=== PATIENT | female | born 1970 | race Caucasian/White ===

== ENCOUNTER 2019-04-30 13:42 | Emergency (ER) | payer OTHER, SELFPAY ==
[2019-04-30 13:43] VITALS: BP 152/87; PULSE 78; RESP 16; TEMP 36.8; O2SAT 95; BMI 23.3
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
[2019-04-30 16:26] VITALS: RESP 16
[2019-04-30] MEDS: Ketorolac 60 MG/2 ML Vial IM (16:54)
[2019-04-30] MEDS: Orphenadrine 60 MG/2 ML Ampul IM (16:56)
[2019-04-30 17:02] VITALS: BP 146/86; PULSE 67; RESP 16; O2SAT 95
== END 2019-04-30 17:21 | disposition home or self-care (01) ==
PROVIDERS: Emergency Provider Emergency Medicine; Family Provider Family Medicine; PCP Family Medicine
DX: S09.90XA Unspecified injury of head, initial encounter (principal); S16.1XXA Strain of muscle, fascia and tendon at neck level, initial encounter; S39.012A Strain of muscle, fascia and tendon of lower back, initial encounter; V43.62XA Car passenger injured in collision with other type car in traffic accident, initial encounter; Y93.9 Activity, unspecified; Y92.410 Unspecified street and highway as the place of occurrence of the external cause; Y99.9 Unspecified external cause status; E03.9 Hypothyroidism, unspecified
CPT/HCPCS: 70450; 72100; 72125; 96372; 99284; A4216

== ENCOUNTER → 2022-12-22 | Outpatient (CLI) | payer OTHER, SELFPAY ==
[2022-12-22 18:30] LABS: Erythrocyte Sedimentation Rate 7 mm/hr (0-30)
[2022-12-22 18:32] LABS: Absolute Lymphocyte Count 1.87 X10^3/uL (0.83-4.51); Absolute Neutrophil Count 5.4 X10^3/uL (2.0-7.7); Basophil# 0.05 X10^3/uL; Basophil% 0.6 % (0-1); Eosinophil# 0.19 X10^3/uL; Eosinophils% 2.4 % (0-5); Hematocrit 45.7 % (37-47); Hemoglobin 14.5 g/dL (12.0-15.0); Lymphocyte # 1.87 X10^3/ul (0.83-4.51); Lymphocyte % 23.3 % (19-41); Mean Corp Hgb Conc 31.7 g/dL (32-36); Mean Corpuscular Hgb 29.3 pg (27.0-32.0); Mean Corpuscular Volume 92.3 fL (81-99); Mean Platelet Vol. 10.5 fl (6.2-12.0); Monocyte# 0.52 X10^3/uL; Monocyte% 6.5 % (0-10); NRBC Flagged by Analyzer 0 % (0-5); Neutrophil # 5.37 X10^3/uL (2.7-7.7); Neutrophil % 66.8 % (47-70); Platelet Count 276 K/mm3 (150-450); RBC Distribution Width CV 12.8 % (11.6-14.6); RBC Distribution Width SD 43.2 fl (35.1-43.9); Red Blood Count 4.95 M/mm3 (4.2-5.4)
[2022-12-22 18:47] LABS: ALB/GLOB Ratio 1.1 RATIO (0.9-2.4); AST(SGOT) 64 U/L (15-37); Alanine Aminotransfer ALT/SGPT 61 U/L (13-56); Albumin, Serum 3.7 g/dL (3.2-5.0); Alkaline Phosphatase 109 U/L (45-117); Anion Gap 4 (5-15); BUN 13 mg/dL (7-18); CRP 3.29 mg/L (0.0-3.0); Calcium,Total 8.9 mg/dL (8.5-10.1); Chloride 110 mmol/L (98-107); Creatinine, Serum 0.93 mg/dL (0.55-1.02); EST Glomerular Filtration Rate 67 mL/min (>60); Est Glom Filt Rate - Afr Amer 81 mL/min (>60); Globulin 3.4 g/dL (2.2-4.2); Glucose 133 mg/dL (74-106); Potassium 3.8 mmol/L (3.5-5.1); Protein, Total 7.1 g/dL (6.4-8.2); Rheumatoid Factor < 10.0 IU/mL (<15); Sodium Level 138 mmol/L (136-145); Uric Acid 6.7 mg/dL (2.6-6.0)
[2022-12-24 13:08] LABS: CCP IgG Antibodies 1 units (0-19)
[2022-12-24 14:09] LABS: ANTINUCLEAR ANTIBODIES DIRECT Negative (Negative)
== END | disposition home or self-care (01) ==
PROVIDERS: PCP Physician Assistant; Referring Provider Podiatrist; Visit Provider Podiatrist
DX: M19.90 Unspecified osteoarthritis, unspecified site (principal); M72.2 Plantar fascial fibromatosis
CPT/HCPCS: 36415; 80053; 84550; 85025; 85652; 86038; 86140; 86200; 86431

== ENCOUNTER → 2023-01-25 | Outpatient (CLI) | payer OTHER, SELFPAY ==
[2023-01-25 12:46] LABS: Erythrocyte Sedimentation Rate 11 mm/hr (0-30)
[2023-01-25 12:49] LABS: Absolute Lymphocyte Count 1.39 X10^3/uL (0.83-4.51); Absolute Neutrophil Count 3.7 X10^3/uL (2.0-7.7); Basophil# 0.04 X10^3/uL; Basophil% 0.7 % (0-1); Eosinophil# 0.12 X10^3/uL; Eosinophils% 2.1 % (0-5); Hematocrit 44.9 % (37-47); Hemoglobin 14.5 g/dL (12.0-15.0); Lymphocyte # 1.39 X10^3/ul (0.83-4.51); Lymphocyte % 24.6 % (19-41); Mean Corp Hgb Conc 32.3 g/dL (32-36); Mean Corpuscular Hgb 28.9 pg (27.0-32.0); Mean Corpuscular Volume 89.6 fL (81-99); Mean Platelet Vol. 11.3 fl (6.2-12.0); Monocyte# 0.37 X10^3/uL; Monocyte% 6.5 % (0-10); NRBC Flagged by Analyzer 0 % (0-5); Neutrophil % 65.6 % (47-70); Platelet Count 249 K/mm3 (150-450); RBC Distribution Width CV 12.8 % (11.6-14.6); RBC Distribution Width SD 41.6 fl (35.1-43.9); Red Blood Count 5.01 M/mm3 (4.2-5.4); White Blood Count 5.7 K/mm3 (4.4-11.0)
[2023-01-25 13:11] LABS: AST(SGOT) 51 U/L (15-37); Alanine Aminotransfer ALT/SGPT 55 U/L (13-56); Albumin, Serum 3.8 g/dL (3.2-5.0); Alkaline Phosphatase 108 U/L (45-117); Anion Gap 6 (5-15); BUN 12 mg/dL (7-18); BUN/Creat Ratio 14.7 RATIO (10-20); CRP < 2.90 mg/L (0.0-3.0); Calcium,Total 9.1 mg/dL (8.5-10.1); Chloride 109 mmol/L (98-107); Creatinine, Serum 0.82 mg/dL (0.55-1.02); EST Glomerular Filtration Rate 78 mL/min (>60); Est Glom Filt Rate - Afr Amer 94 mL/min (>60); Globulin 3.7 g/dL (2.2-4.2); Glucose 144 mg/dL (74-106); Protein, Total 7.5 g/dL (6.4-8.2); Rheumatoid Factor < 10.0 IU/mL (<15); Sodium Level 141 mmol/L (136-145)
[2023-01-25 13:26] LABS: Hepatitis B Surface Antibody Non-Reactive; Hepatitis B Surface Antigen Non-Reactive (Nonreactive); Hepatitis C Antibody Non-Reactive (Nonreactive)
[2023-01-27 16:09] LABS: CCP IgG Antibodies 6 units (0-19); QNTFERON TB Mitogen Value > 10.00 IU/mL (.); QNTFERON TB Nil Value 0.02 IU/mL (.); QNTFERON TB1+ Ag Value 0.03 IU/mL (.); QNTFERON TB2+ Ag Value 0.02 IU/mL (.); QNTIFERON TB Positive Criteria Negative (Negative)
== END | disposition home or self-care (01) ==
LOC: MTLAB 09:57
PROVIDERS: PCP Physician Assistant; Referring Provider Internal Medicine Rheumatology; Visit Provider Internal Medicine Rheumatology
DX: M06.4 Inflammatory polyarthropathy (principal); M79.7 Fibromyalgia; M51.37 Other intervertebral disc degeneration, lumbosacral region; M50.30 Other cervical disc degeneration, unspecified cervical region; I10 Essential (primary) hypertension; E03.9 Hypothyroidism, unspecified
CPT/HCPCS: 36415; 80053; 85025; 85652; 86140; 86200; 86431; 86480; 86706; 86803; 87340

== ENCOUNTER → 2023-10-20 | Outpatient (CLI) | payer OTHER, SELFPAY ==
[2023-10-20 12:30] LABS: Absolute Lymphocyte Count 1.65 X10^3/uL (0.83-4.51); Absolute Neutrophil Count 4.2 X10^3/uL (2.0-7.7); Basophil# 0.07 X10^3/uL; Eosinophil# 0.24 X10^3/uL; Eosinophils% 3.6 % (0-5); Hematocrit 43.2 % (37-47); Hemoglobin 13.5 g/dL (12.0-15.0); Lymphocyte # 1.65 X10^3/ul (0.83-4.51); Lymphocyte % 24.7 % (19-41); Mean Corp Hgb Conc 31.3 g/dL (32-36); Mean Corpuscular Hgb 28.4 pg (27.0-32.0); Mean Corpuscular Volume 90.8 fL (81-99); Monocyte# 0.48 X10^3/uL; Monocyte% 7.2 % (0-10); NRBC Flagged by Analyzer 0 % (0-5); Neutrophil # 4.22 X10^3/uL (2.7-7.7); Neutrophil % 63.2 % (47-70); Platelet Count 269 K/mm3 (150-450); RBC Distribution Width CV 13.2 % (11.6-14.6); RBC Distribution Width SD 43.2 fl (35.1-43.9); Red Blood Count 4.76 M/mm3 (4.2-5.4); White Blood Count 6.7 K/mm3 (4.4-11.0)
[2023-10-20 13:30] LABS: AST(SGOT) 33 U/L (15-37); Alanine Aminotransfer ALT/SGPT 36 U/L (13-56); Albumin, Serum 3.6 g/dL (3.2-5.0); Alkaline Phosphatase 103 U/L (45-117); Anion Gap 6 (5-15); BUN 13 mg/dL (7-18); BUN/Creat Ratio 14.8 RATIO (10-20); Calcium,Total 9.1 mg/dL (8.5-10.1); Chloride 110 mmol/L (98-107); Cholesterol 146 mg/dL (200); Creatinine, Serum 0.88 mg/dL (0.55-1.02); EST Glomerular Filtration Rate 72 mL/min (>60); Est Glom Filt Rate - Afr Amer 87 mL/min (>60); Globulin 3.7 g/dL (2.2-4.2); Glucose 147 mg/dL (74-106); High Density Lipoprotein 51 mg/dL; Potassium 4.3 mmol/L (3.5-5.1); Protein, Total 7.3 g/dL (6.4-8.2); Sodium Level 142 mmol/L (136-145); T4 Free Direct 0.99 ng/dL (0.76-1.46); Thyroid Stim Hormone (TSH) 0.47 uIU/mL (0.358-3.74); Triglycerides 254 mg/dL; Very Low Density Lipoprotein 51 mg/dL (5-40)
[2023-10-20 13:35] LABS: Microalbumin,Random Urine 10.1 mg/L (NO RANGE EST.); Microalbumin:Creatinine Ratio 7.3 mg/g CRE (<30 mg/g CRE)
== END | disposition home or self-care (01) ==
LOC: BFHLAB 09:16
PROVIDERS: PCP Family Medicine; Visit Provider Family Medicine
DX: E03.9 Hypothyroidism, unspecified (principal); E11.9 Type 2 diabetes mellitus without complications; I10 Essential (primary) hypertension
CPT/HCPCS: 36415; 80053; 80061; 82043; 82570; 84439; 84443; 85025

== ENCOUNTER → 2023-12-20 | Outpatient (CLI) | payer OTHER, SELFPAY ==
--- NOTE | 2023-12-20 10:52 | NEURO ---
NCS and/or EMG Patient Report Ordering Doctor: Rebel Balbuena DATE OF SERVICE: 12/20/23 Clinical Summary: 53 year old female patient with symptoms of pain in the distal lower extremities. She has a history of L4-L5 back surgery. Nerve Conduction Studies Summary: The right peroneal-EDB CMAP amplitude was reduced diffusely. The right peroneal motor conduction velocity was mildly reduced distally. Needle Examination Summary: Needle examination of select muscles of the bilateral lower extremities demonstrated a higher proportion of motor unit action potentials with increased amplitude and increased duration in the right tibialis anterior and peroneus longus muscles. Impression: The electrodiagnostic findings are suggestive, but not definitively diagnostic, of a chronic, mild, right L5 radiculopathy. There is no electrodiagnostic evidence of a left lumbosacral radiculopathy. There is no electrodiagnostic evidence of a large-fiber peripheral polyneuropathy. Multi Select Codes Neurology Neurology Interp Codes: 43390-29 Musc test done w/n test comp (interp) (2) and 39278-55 Nrv cndj test 9-10 studies (interp)
== END | disposition home or self-care (01) ==
PROVIDERS: PCP Family Medicine; Referring Provider Podiatrist; Visit Provider Podiatrist
DX: G60.8 Other hereditary and idiopathic neuropathies (principal)
CPT/HCPCS: 95886; 95911

== ENCOUNTER → 2024-02-02 | Outpatient (CLI) | payer OTHER, SELFPAY ==
[2024-02-07 14:10] LABS: Age Gdln ACOG Testing 30-65 (.); HPV APTIMA, High Risk Negative (Negative)
[2024-02-07 17:12] LABS: HPV Reflexed? YES, CHARGE PATIENT
== END | disposition home or self-care (01) ==
LOC: LABSPEC 13:46
PROVIDERS: PCP Family Medicine; Referring Provider Family Medicine; Visit Provider Family Medicine
DX: Z12.4 Encounter for screening for malignant neoplasm of cervix (principal)
CPT/HCPCS: 87624; 88175; G0145

== ENCOUNTER 2024-03-21 10:00 | Outpatient (RCR) | payer OTHER, SELFPAY ==
--- NOTE | 2024-01-10 07:18 | HP.PTEVAL_ITS ---
Patient's Visit Information Visit Information Visit Information: OTONIEL NIX is a 53 year old F referred to Physical Therapy by Dr. Rebel Balbuena DPM with a diagnosis of Bilateral achilles tendonitis, peroneus brevis tear on L, ATFL tear on R. Date of Evaluation: 12/30/23 Physical Therapist: Jimenez Tyson DPT Visit Plan Frequency: 2x /Week Duration: 6 Weeks Plan: Start with slowly, but progressively loading of tissues to aid with remodeling. Start with banded progressing to CKC. Add in DN/graston to assist with remodeling. Progress to CKC and neuromuscular re eduction to reduce end range stress to lateral tissues. Subjective Subjective: Pt. 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 Pt. reports having N/T in B feet, and burning in B anterior tibial region. Pt. reports increased issues with sleeping. She props her feet up, but they become very numb at night. Pt. has had ankle and feet problems for reported years. She wears B [employer] boots which help. She is also doing EPAT at podiatry. PMH: lumbar surgery (non fusion), and lumbar nerve ablasion. Pt. reports she was trying to walk more, but really aggravated her ankles and feet. She has had recent MRIs of both feet/ankles: R: ATFL tear chronic, Achilles tendinosis, plantar fasciitis, lateral posterior talar dome injury L: peroneus brevis tendon split, insertional medial plantar fascial tear. Pt. is hopeful to get back to walking without increase in B ankle pain. Pt. has increased pain with standing, walking, most CKC activities. Decreased pain: sitting, but not much. Pain R ankle: Pain Intensity (Out of 10): 8 Pain Intensity Range: 4 and 10 Comment: lateral ankle into foot L ankle: Pain Intensity (Out of 10): 8 Pain Intensity Range: 4 and 10 Comment: lateral aspect Objective Objective: POSTURE: Pt. has fairly normal stance. No major abnormalities. Pt. has slight sway back posture. Pt. has decreased B arch heights. PALPATION: Pt. is pretty tender to palpation throughout lateral foot and along peroneals. NEURO: Pt. has decreased sensation in B feet to light touch, otherwise normal. ROM: R ankle: DF 8deg, PF 39deg, INV 8deg, EVR 8deg. L ankle: DF 9deg, PF 41deg, INV 8 deg, EVR 8 deg. Pt. has normal B knee ROM. Pt has tightness noted in B hamstrings. MMT: R ankle: DF 4/5 ID 4+/5, INV 4/5, EVR 4/5 increase with all testing. L ankle: DF 4/5 ID 4+/5, INV 4/5, EVR 4/5 increase with all testing. GAIT: Pt. ambulates without AD, but has very flat foot type gait, limited forefoot rocker moment noted. STAIRS: equally very stiff with her ankle and foot mobility. Balance/Special Test Scores Lower Extremity Functional Score: 46 Goals Goal 1:: LTG: Pt. to be I with HEP. Goal Time Frame: 4-6 Weeks Goal 2:: STG: Pt. to ambulate with in grocery store and community with 0-4/10 pain in B ankles. Goal Time Frame: 2-4 Weeks Goal 3:: LTG: Pt. to ambulate unlimited distances with normal gait pattern with 0-2/10 pain in B ankles. Goal Time Frame: 4-6 Weeks Goal 4:: LTG: Pt. to have increased B ankle strength to 5/5 throughout. Goal Time Frame: 4-6 Weeks Goal 5:: LTG: Pt. to tolerate all ADLs and IADLs with 0-2/10 pain in B ankles. Goal Time Frame: 4-6 Weeks Rehabilitation Potential Physical Therapy Diagnosis: Pt. has signs and symptoms consistent with Bilateral achilles tendonitis, peroneus brevis tear on L, ATFL tear on R. Pt. has higher levels of pain in B feet and lateral ankles. Pt. would benefit from PT. to work on slowly remodeling tissue and increasing stability with all CKC and functional mobility. Rehabilitation Potential: Good Anticipated Interventions Patient/Client Instruction: Educate patient on: Condition, Plan of Care, Risk Factors and Benefits of Fitness Program For the Purpose of:: To improve decision making, To facilitate caregiver knowledge, To improve self management, To prevent re-injury and To improve ability to perform tasks related to life management Therapeutic Exercise to Include: Strength training, Power training, Balance training, Flexibilty training, Gait and locomotor training, Neuromotor development, Passive ROM and Active ROM For the Purpose of:: To decrease pain, To increase ROM, To improve nutrient delivery to tissue, To increase oxygenation perfusion, To improve muscle performance and motor function, To improve ability to perform ADL's, To increase tolerance to activity/condition/position, To decrease soft tissue restriction and To increase flexibility/ROM Manual Therapy Techniques to Include: Mobilization, Functional dry needling and Soft tissue mobilization For the Purpose of:: To decrease pain, To increase ROM and To improve nutrient delivery to tissue Text: Thank you for the opportunity to evaluate your patient. For Medicare and Medicare HMO plans, please review the plan of care and approve it. It will need to be FAXED BACK to us at [phone] for Medicare purposes. For Medicare only, by signing this I certify the plan of care. Please let me know if there are questions or concerns regarding this plan of care. Physician Signature: Date:
== END 2024-03-21 19:00 | disposition home or self-care (01) ==
LOC: PT 10:00
PROVIDERS: PCP Family Medicine; Referring Provider Podiatrist; Visit Provider Podiatrist
DX: M76.61 Achilles tendinitis, right leg (principal); M76.62 Achilles tendinitis, left leg
CPT/HCPCS: 97110; 97140; 97161

== ENCOUNTER → 2024-11-02 | Outpatient (CLI) | payer OTHER, SELFPAY ==
--- NOTE | 2024-11-02 15:41 | US_ITS ---
PROCEDURE: TRANSVAGINAL NON- REASON FOR EXAM: Postmenopausal bleeding. TECHNIQUE: Transabdominal and transvaginal pelvic ultrasound COMPARISON: None. FINDINGS: Measurements: Uterus: 8.4 cm x 4.1 cm x 3.8 cm with a volume of 67.2 mL Endometrial Thickness: 3.8 mm Right Ovary: Not visualized. Left Ovary: Not visualized. TRANSABDOMINAL: Uterus: Heterogeneous appearance of the myometrium. No focal fibroid is seen. Findings suggestive of fibroid change. Endometrium: Mildly thickened endometrium. Right ovary: Not visualized. Left ovary: Not visualized. No large pelvic mass identified. Transvaginal sonography was performed as transabdominal imaging did not explain the patient's presenting symptoms. TRANSVAGINAL: Uterus: Anteverted. Heterogeneous echotexture of the myometrium suggestive of fibroid change although no focal fibroid is seen. Endometrium: Mild endometrial thickening. Right ovary: Not visualized. Left ovary: Not visualized. Other adnexal findings: None. Cul-de-sac: No free intraperitoneal fluid identified. No tenderness. US/Transvaginal Non- IMPRESSION: Mild thickening of the endometrium. Fibroid change although no focal fibroid is seen. Reading Location: [facility]
== END | disposition home or self-care (01) ==
LOC: US 15:39
PROVIDERS: PCP Family Medicine; Referring Provider Obstetrics & Gynecology; Visit Provider Obstetrics & Gynecology
DX: N95.0 Postmenopausal bleeding (principal)
CPT/HCPCS: 76830

== ENCOUNTER 2025-04-17 10:00 | Outpatient (RCR) | payer OTHER, SELFPAY ==
--- NOTE | 2025-03-06 10:58 | HP.PTEVAL_ITS ---
Patient's Visit Information Visit Information Visit Information: OTONIEL NIX is a 54 year old F referred to Physical Therapy by CONOR Velásquez with a diagnosis of Cervical and L Radic. Date of Evaluation: 03/06/25 Physical Therapist: ROBSON Castro Visit Plan Frequency: 2x /Week Duration: 2 Months Plan: 2X/ week for 4 weeks for consult for DN per order for C-spine and L-spine radic, postural and Neutral spine core stability, postural exercises, trail of neck retraction and extension with HEP HEP: light chin tucks to see effectivness as long as does not keep lasting pain in the neck or L shoulder Subjective Subjective: Pt has cervical issues at lower part of the brain and goes out to B shoulder and can't lift her L arm and feels on the L like there are spiders down the arm and N&T. This started in October. They have done MRI and x-rays and seen ortho Dr. Her MRI showed C4/C5 and C6/C7 disc bulges and L4/L5 and L5/S1. There is no pain management scheduled at this time but is an option. She has had PT for neck and back before and reports that she tries to do PT exercises. She reports that she has trouble sleeping with pain down the L arm and in the neck. She is trying to sleep in a bed. Pt feels that dry needling helped with her feet and wants to try it on her neck and back. Pain Neck pain: Pain Intensity (Out of 10): 7 L arm pain: Pain Intensity (Out of 10): 7 Back Pain: Pain Intensity (Out of 10): 6 Objective Objective: Gait: walks with shorter stride and decrease heel to toe gait pattern Posture: Sits with rounded shoulders and increase PPT C-spine AROM: flexion 75%, Ext 10%, Rot R 75% and Rot L 50% with increase pain, SB B 10% C-spine retraction has pain neck down the L side while doing it and then less pain when stop it. UE AROM: flexion B approx 120 with increase pain on the L, IR to L1 B with increase pain on the L, ER WFL Trunk AROM: flexion 100%, EXt 75%, Sb B 75%, Rot B 50% UE MMT: R shoulder flexion 11.5 and L 9.7 R shoulder ER 8.5 and L 9.7 R shoulder IR 11.1 and L 11.6 LE MMT: R hip flex 12.1 and L 12.6 R knee ext 16.9 and L 23 R knee flex 10.1 and L 12.1 Supine hip ABD R 12.9 and L 16 Bridge: full ROM bridge -SLR B Palpation: pt has tightness along levator, upper and mid trap region. Balance/Special Test Scores Oswestry Neck Score: 23 Goals Goal 1:: I HEP Goal Time Frame: 6-8 Weeks Goal 2:: Increase C-spine AROM (at the time of the eval: C-spine AROM: flexion 75%, Ext 10%, Rot R 75% and Rot L 50% with increase pain, SB B 10%) Goal Time Frame: 6-8 Weeks Goal 3:: Decrease neck and L shoulder pain by 50% Goal Time Frame: 6-8 Weeks Goal 4:: Be able to complete full L spine core stability program to complete at home Goal Time Frame: 6-8 Weeks Rehabilitation Potential Rehabilitation Potential: Good Anticipated Interventions Patient/Client Instruction: Educate patient on: Condition and Plan of Care For the Purpose of:: To decrease pain, To decrease swelling/inflammation, To increase ROM, To improve nutrient delivery to tissue, To improve muscle performance and motor function, To improve ability to perform ADL's, To increase tolerance to activity/condition/position, To improve performance and independence with ADL's, To decrease level of supervision to perform tasks, To improve ability of physical actions for home/community/work/leisure, To improve health of tissue, To decrease soft tissue restriction and To increase flexibility/ROM Therapeutic Exercise to Include: Strength training, Body mechanics, Postural training, Flexibilty training, Neuromotor development, Passive ROM, Active ROM, Peyton Exercises and Scapular Strength/Stabilization For the Purpose of:: To decrease pain, To increase ROM, To improve nutrient delivery to tissue, To improve muscle performance and motor function, To improve ability to perform ADL's, To increase tolerance to activity/condition/position, To improve performance and independence with ADL's, To decrease level of supervision to perform tasks, To improve ability of physical actions for home/community/work/leisure, To improve health of tissue, To decrease soft tissue restriction and To increase flexibility/ROM Manual Therapy Techniques to Include: Passive ROM, Soft tissue mobilization and Other Comment: DN For the Purpose of:: To decrease pain, To increase ROM, To improve nutrient delivery to tissue, To improve muscle performance and motor function, To improve ability to perform ADL's, To increase tolerance to activity/condition/position, To improve performance and independence with ADL's, To decrease level of supervision to perform tasks, To improve ability of physical actions for home/community/work/leisure, To improve health of tissue, To decrease soft tissue restriction and To increase flexibility/ROM Ultrasound (thermal/non thermal): Yes For the Purpose of:: To decrease pain, To decrease swelling/inflammation, To increase ROM and To improve nutrient delivery to tissue Text: Thank you for the opportunity to evaluate your patient. For Medicare and Medicare HMO plans, please review the plan of care and approve it. It will need to be FAXED BACK to us at [phone] for Medicare purposes. For Medicare only, by signing this I certify the plan of care. Please let me know if there are questions or concerns regarding this plan of care. Physician Si gnature: Date:
--- NOTE | 2025-07-03 13:15 | HP.PT.NRP ---
Patient Information Patient Information: OTONIEL NIX was seen in my office for initial evaluation on 03/06/25. The following Plan of Care was established for this patient: POC Established Initial Frequency: 2x /Week Initial Duration: 2 Months Anticipated Interventions Patient/Client Instruction: Educate patient on: Condition and Plan of Care For the Purpose of:: To decrease pain, To decrease swelling/inflammation, To increase ROM, To improve nutrient delivery to tissue, To improve muscle performance and motor function, To improve ability to perform ADL's, To increase tolerance to activity/condition/position, To improve performance and independence with ADL's, To decrease level of supervision to perform tasks, To improve ability of physical actions for home/community/work/leisure, To improve health of tissue, To decrease soft tissue restriction and To increase flexibility/ROM Therapeutic Exercise to Include: Strength training, Body mechanics, Postural training, Flexibilty training, Neuromotor development, Passive ROM, Active ROM, Peyton Exercises and Scapular Strength/Stabilization For the Purpose of:: To decrease pain, To increase ROM, To improve nutrient delivery to tissue, To improve muscle performance and motor function, To improve ability to perform ADL's, To increase tolerance to activity/condition/position, To improve performance and independence with ADL's, To decrease level of supervision to perform tasks, To improve ability of physical actions for home/community/work/leisure, To improve health of tissue, To decrease soft tissue restriction and To increase flexibility/ROM Manual Therapy Techniques to Include: Passive ROM, Soft tissue mobilization and Other Comment: DN For the Purpose of:: To decrease pain, To increase ROM, To improve nutrient delivery to tissue, To improve muscle performance and motor function, To improve ability to perform ADL's, To increase tolerance to activity/condition/position, To improve performance and independence with ADL's, To decrease level of supervision to perform tasks, To improve ability of physical actions for home/community/work/leisure, To improve health of tissue, To decrease soft tissue restriction and To increase flexibility/ROM Ultrasound (thermal/non thermal): Yes For the Purpose of:: To decrease pain, To decrease swelling/inflammation, To increase ROM and To improve nutrient delivery to tissue Last Seen Last Seen: This patient was last seen in our office 05/01/25. Pertinent comments regarding their Physical therapy will appear below: DC PT At this point I will be discontinuing this patient from physical therapy. I would be happy to see this patient again in the future if found appropriate by the physician. Thank you! Demetria Garcia, ROBSON Balance/Gait/Functional tests Balance/Special Test Scores Oswestry Neck Score: 23
== END 2025-04-17 19:00 | disposition home or self-care (01) ==
LOC: PT 10:00
PROVIDERS: PCP Family Medicine; Referring Provider Student in an Organized Health Care Education/Training Program; Visit Provider Student in an Organized Health Care Education/Training Program
DX: M54.12 Radiculopathy, cervical region (principal); M54.16 Radiculopathy, lumbar region
CPT/HCPCS: 97110; 97140; 97162